=== PATIENT | female | born 2000 | race Hispanic/Latino ===

== ENCOUNTER 2023-12-10 13:40 | Emergency (ER) | payer OTHER ==
[2023-12-10 14:06] LABS: BASOPHILS ABSOLUTE AUTO 0.05 K/uL (0.00-0.20); BASOPHILS PERCENT AUTO 0.4 % (0.0-1.0); EOSINOPHILS ABSOLUTE AUTO 0.24 K/uL (0.00-0.45); HEMATOCRIT 31.5 % (37.0-47.0); HEMOGLOBIN 9.8 g/dL (12.0-16.0); IMMATURE GRAN ABSOLUTE AUTO 0.03 K/uL (0.00-0.05); IMMATURE GRAN PERCENT AUTO 0.3 % (0.0-0.4); LYMPHOCYTES ABSOLUTE AUTO 2.74 K/uL (1.00-4.80); LYMPHOCYTES PERCENT AUTO 23.2 % (24.0-44.0); MEAN CORPUSCULAR HEMOGLOBIN 17.5 pg (28.0-32.0); MEAN CORPUSCULAR HGB CONC 31.1 g/dL (32.0-36.0); MONOCYTES ABSOLUTE AUTO 0.64 K/uL (0.00-0.80); MONOCYTES PERCENT AUTO 5.4 % (0.0-8.0); NEUTROPHILS ABSOLUTE AUTO 8.11 K/uL (1.80-7.70); NEUTROPHILS PERCENT AUTO 68.7 % (41.0-71.0); WHITE BLOOD CELL COUNT,WBC 11.81 K/uL (3.9-11.3)
[2023-12-10 14:07] LABS: BASE EXCESS VENOUS 0.1 (-2.0-3.0); BICARBONATE,VENOUS 26 mEq/L (23-28); PCO2 VENOUS 47 mmHG (41-51); PH,VENOUS 7.35 (7.31-7.41)
[2023-12-10 14:08] LABS: PO2 VENOUS < 30 mmHG
[2023-12-10 14:39] LABS: CALCIUM 9.3 mg/dL (8.5-10.1); CARBON DIOXIDE,CO2 26.6 mmol/L (21.0-32.0); CREATININE 0.7 mg/dL (0.6-1.0); EST CRCL DRUG DOSING (CG) 114.4 mL/min
[2023-12-10 14:50] LABS: MEAN CORPUSCULAR VOLUME 56.3 fL (83.0-99.0); PLATELET COUNT,PLT 343 K/uL (150-400)
[2023-12-10] MEDS ORDERED: Acetaminophen/Butalbital/Caffeine 325-50-40 MG Tab PO ONE (15:18)
== END 2023-12-10 16:57 | disposition home or self-care (01) ==
LOC: MW.ED 13:40
DX: R51.9 Headache, unspecified (principal)
CPT/HCPCS: 36415; 80048; 82375; 82803; 84484; 85025; 93005; 99283; A9270; 93010

== ENCOUNTER 2025-09-18 00:19 | Emergency (ER) | payer BC | END 2025-09-18 01:16 | disposition home or self-care (01) | LOC: MW.ED 00:19 | DX: K04.7 Periapical abscess without sinus (principal); Z75.3 Unavailability and inaccessibility of health-care facilities; Z79.899 Other long term (current) drug therapy | CPT/HCPCS: 99282; A9270; 99283 ==